=== PATIENT | female | born 1970 | race Two or more races ===

== ENCOUNTER 2017-05-28 16:12 | Emergency (ER) | payer BC ==
[~2017-05-28] VITALS: Ht 160 cm; Wt 49.9 kg
[2017-05-28] MEDS ORDERED: traMADol 50mg tab ORAL ONE (16:30)
[2017-05-28 19:15] VITALS: BP 106/62
[2017-05-28] MEDS ORDERED: IBUPROFEN600 MG ORAL (19:53)
[2017-05-28] MEDS ORDERED: NORCO 5-325 TA1 EAC1 ORAL (19:53)
[2017-05-28] MEDS ORDERED: Bacitracin Oint UD TOPIC ONE (20:30)
[2017-05-28 20:40] VITALS: BP 110/62
[2017-05-28 20:45] VITALS: BP 110/62
[2017-05-28] MEDS ORDERED: ZOFRAN4 M3 ORAL (21:43)
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
== END 2017-05-28 20:45 | disposition home or self-care (01) ==
LOC: EDBD 16:12 → EDUNIT# 18:29 → EMR 18:29
DX: S80.01XA Contusion of right knee, initial encounter (principal); S00.412A Abrasion of left ear, initial encounter; S60.811A Abrasion of right wrist, initial encounter; S60.812A Abrasion of left wrist, initial encounter; S10.81XA Abrasion of other specified part of neck, initial encounter; S10.91XA Abrasion of unspecified part of neck, initial encounter; T20.17XA Burn of first degree of neck, initial encounter; V43.52XA Car driver injured in collision with other type car in traffic accident, initial encounter; Y92.410 Unspecified street and highway as the place of occurrence of the external cause
CPT/HCPCS: 71020; 99284